=== PATIENT | female | born 1960 | race Caucasian/White ===

== ENCOUNTER → 2016-10-09 | Outpatient (CLI) | payer OTHER ==
[~2016-10-09] MED LIST: OMNIPAQUE 350 MG/ML, 100ML BOTTLE ONE
== END | disposition home or self-care (01) ==
LOC: RAD 13:03
PROVIDERS: ATTEND Obstetrics & Gynecology
DX: K76.89 Other specified diseases of liver (principal); R19.00 Intra-abdominal and pelvic swelling, mass and lump, unspecified site; R18.8 Other ascites; M51.36 Other intervertebral disc degeneration, lumbar region; M47.896 Other spondylosis, lumbar region
CPT/HCPCS: 74177; Q9967

== ENCOUNTER 2016-10-24 06:41 | Inpatient (IN) | payer OTHER ==
[2016-10-22 14:29] LABS: BLOOD UREA NITROGEN 11 mg/dL (7-18)
[2016-10-22 14:33] LABS: ASPARTATE AMINO TRANSFERASE 23 U/L (15-37)
[~2016-10-24] VITALS: Ht 172.7 cm; Wt 66.8 kg
[~2016-10-24 06:41] MED LIST changes: +None per pt; -OMNIPAQUE 350 MG/ML, 100ML BOTTLE ONE
[2016-10-24] MEDS ORDERED: ALBUMIN HUMAN 5% 500 ML ONE (07:17)
[2016-10-24] MEDS ORDERED: BUPIVACAINE/PF-EPI 0.25% 1:200K ONE (07:17)
[2016-10-24 08:22] VITALS: BP 114/73
[2016-10-24] MEDS ORDERED: FENTANYL PF 250 MCG/5ML ONE (08:44)
[2016-10-24] MEDS ORDERED: MIDAZOLAM 1 MG/ML, 2ML ONE (08:44)
[2016-10-24] MEDS ORDERED: KETAMINE 10 MG/ML, 20ML ONE ×2 (08:44→09:27)
[2016-10-24] MEDS ORDERED: HYDROmorphone 2 MG/ML, 1ML ONE ×2 (08:44→15:00)
[2016-10-24] MEDS ORDERED: HEPARIN 5,000 UNITS/ML, 1ML ONE (08:54)
[2016-10-24] MEDS ORDERED: ONDANSETRON 2MG/ML, 2ML ONE (09:27)
[2016-10-24] MEDS ORDERED: PROPOFOL 10 MG/ML, 20ML ONE (09:27)
[2016-10-24] MEDS ORDERED: PHENYLEPHRINE 10 MG/ML ONE (09:27)
[2016-10-24] MEDS ORDERED: ROCURONIUM 10 MG/ML ONE (09:27)
[2016-10-24] MEDS ORDERED: SUCCINYLCHOLINE 20 MG/ML, 10ML ONE (09:27)
[2016-10-24] MEDS ORDERED: NEOSTIGMINE 1 MG/ML, 10ML ONE (09:27)
[2016-10-24] MEDS ORDERED: CEFOTETAN 2 GM ONE (09:27)
[2016-10-24] MEDS ORDERED: GLYCOPYRROLATE 0.2MG/1ML ONE (09:27)
[2016-10-24] MEDS ORDERED: DEXAMETHASONE 4 MG/ML, 1ML ONE (09:27)
[2016-10-24] MEDS ORDERED: FENTANYL PF 100 MCG/2ML ONE (15:00)
[2016-10-24] MEDS ORDERED: OXYcodone 5 MG/5 ML ORAL.SOL UDC ONE (15:01)
[2016-10-24] MEDS: HYDROmorphone 1 MG/ML, 1ML IV PRN ×4 (15:15→15:40)
[2016-10-24] MEDS ORDERED: ONDANSETRON 2MG/ML, 2ML IVPush PRN (16:30)
[2016-10-24] MEDS ORDERED: FENTANYL PF 100 MCG/2ML IV PRN (16:30)
[2016-10-24] MEDS ORDERED: EPHEDRINE 50 MG/ML, 1ML IVPush PRN (16:30)
[2016-10-24] MEDS ORDERED: LABETALOL 5MG/ML, 20ML IV PRN (16:30)
[2016-10-24] MEDS ORDERED: MEPERIDINE/PF 25MG/0.5ML IVPush PRN (16:30)
[2016-10-24] MEDS ORDERED: morphine SULFATE 10 MG/ML, 1ML IV PRN (17:00)
[2016-10-24] MEDS ORDERED: ONDANSETRON 2MG/ML, 2ML IV PRN (17:00)
[2016-10-24] MEDS: POTASSIUM CHLORIDE 20 MEQ in D5%-0.45% NACL 1,000 ML IV SCH ×2 (17:55→22:03)
[2016-10-24] MEDS: ALBUMIN HUMAN 5% 500 ML IV SCH (17:55)
[2016-10-24 19:01] VITALS: BP 116/74
[2016-10-25 00:25] VITALS: BP 103/71
[2016-10-25] MEDS: POTASSIUM CHLORIDE 20 MEQ in D5%-0.45% NACL 1,000 ML IV SCH ×5 (01:13→22:58)
[2016-10-25] MEDS: morphine SULFATE 10 MG/ML, 1ML IV PRN ×4 (03:33→15:19)
[2016-10-25 04:00] VITALS: BP 101/65
[2016-10-25] MEDS: ALBUMIN HUMAN 5% 500 ML IV SCH ×2 (05:18→16:37)
[2016-10-25 08:43] VITALS: BP 97/64
[2016-10-25 11:42] LABS: BLOOD UREA NITROGEN 8 mg/dL (7-18)
[2016-10-25 11:47] LABS: DIFF TOTAL CELLS COUNTED 100 CELL DIFF
[2016-10-25 12:09] LABS: VERIFY COUNTS? YES
[2016-10-25 12:10] LABS: ANISOCYTOSIS 1+; HYPOCHROMIA 1+; OVALOCYTES 1+
[2016-10-25 12:11] LABS: LARGE PLATELETS 1+
[2016-10-25 12:59] VITALS: BP 100/62
[2016-10-25 19:48] VITALS: BP 109/63
[2016-10-26] MEDS: ALBUMIN HUMAN 5% 500 ML IV SCH (01:45)
[2016-10-26 02:31] VITALS: BP 103/67
[2016-10-26] MEDS: POTASSIUM CHLORIDE 20 MEQ in D5%-0.45% NACL 1,000 ML IV SCH (03:36)
[2016-10-26 08:45] VITALS: BP 126/77
[2016-10-26] MEDS ORDERED: DIPHENHYDRAMINE 50 MG/ML, 1ML ONE (10:06)
[2016-10-26] MEDS ORDERED: MAGNESIUM HYDROXIDE 8%, 30ML UDC ONE (10:35)
[2016-10-26 11:22] LABS: BLOOD UREA NITROGEN 3 mg/dL (7-18)
[2016-10-26] MEDS: D5%-0.45NACL+KCL 20MEQ 1,000 ML IV SCH ×2 (13:22→23:15)
[2016-10-26 14:09] VITALS: BP 122/74
[2016-10-26 19:45] VITALS: BP 126/75
[2016-10-27 01:41] VITALS: BP 135/87
[2016-10-27 06:20] LABS: BLOOD UREA NITROGEN 4 mg/dL (7-18)
[2016-10-27 07:15] VITALS: BP 131/83
[2016-10-27] MEDS: D5%-0.45NACL+KCL 20MEQ 1,000 ML IV SCH ×3 (08:58→20:27)
[2016-10-27 14:02] VITALS: BP 137/88
[2016-10-27 19:12] VITALS: BP 118/81
[2016-10-27] MEDS: OXYcodone/APAP 7.5/325MG TABLET PO PRN (20:07)
[2016-10-28] MEDS: OXYcodone/APAP 7.5/325MG TABLET PO PRN ×3 (01:58→16:59)
[2016-10-28 02:27] VITALS: BP 107/75
[2016-10-28 06:39] LABS: BLOOD UREA NITROGEN 6 mg/dL (7-18)
[2016-10-28 07:00] VITALS: BP 126/80
[2016-10-28 14:35] VITALS: BP 111/76
[2016-10-28] MEDS: ONDANSETRON 2MG/ML, 2ML IV PRN (17:00)
[2016-10-28 19:05] VITALS: BP 102/73
[2016-10-28] MEDS: D5%-0.45NACL+KCL 20MEQ 1,000 ML IV SCH (22:30)
[2016-10-29] MEDS: ONDANSETRON 2MG/ML, 2ML IV PRN ×3 (01:00→14:01)
[2016-10-29] MEDS: OXYcodone/APAP 7.5/325MG TABLET PO PRN ×4 (01:00→19:41)
[2016-10-29 01:44] VITALS: BP 108/73
[2016-10-29] MEDS: morphine SULFATE 10 MG/ML, 1ML IV PRN (04:37)
[2016-10-29 07:57] VITALS: BP 108/72
[2016-10-29 14:10] VITALS: BP 107/68
[2016-10-29] MEDS: D5%-0.45NACL+KCL 20MEQ 1,000 ML IV SCH (19:44)
[2016-10-29 20:10] VITALS: BP 100/67
[2016-10-30] MEDS: OXYcodone/APAP 7.5/325MG TABLET PO PRN ×4 (01:41→20:16)
[2016-10-30 02:37] VITALS: BP 109/73
[2016-10-30 10:59] VITALS: BP 111/69
[2016-10-30 14:30] VITALS: BP 121/77
[2016-10-30] MEDS: D5%-0.45NACL+KCL 20MEQ 1,000 ML IV SCH (16:08)
[2016-10-30 20:12] VITALS: BP 96/55
[2016-10-30 20:15] VITALS: BP 109/72
[2016-10-30 23:48] VITALS: BP 103/53
[2016-10-31] MEDS ORDERED: OXYC-223 PO (00:19)
[2016-10-31] MEDS ORDERED: ONDA4TAB10 PO (00:22)
[2016-10-31 02:24] VITALS: BP 108/69
[2016-10-31] MEDS: OXYcodone/APAP 7.5/325MG TABLET PO PRN ×4 (02:26→20:35)
[2016-10-31 06:01] LABS: BLOOD UREA NITROGEN 8 mg/dL (7-18)
[2016-10-31] MEDS: D5%-0.45NACL+KCL 20MEQ 1,000 ML IV SCH (08:19)
[2016-10-31 08:27] VITALS: BP 110/72
[2016-10-31 14:18] VITALS: BP 109/73
[2016-10-31 19:21] VITALS: BP 101/65
[2016-11-01] MEDS: OXYcodone/APAP 7.5/325MG TABLET PO PRN ×3 (02:31→19:14)
[2016-11-01 03:08] VITALS: BP 109/72
[2016-11-01] MEDS: D5%-0.45NACL+KCL 20MEQ 1,000 ML IV SCH (07:29)
[2016-11-01 08:21] VITALS: BP 105/70
[2016-11-01 13:44] VITALS: BP 110/72
[2016-11-01 19:23] VITALS: BP 106/70
[2016-11-02 02:35] VITALS: BP 105/69
[2016-11-02] MEDS: D5%-0.45NACL+KCL 20MEQ 1,000 ML IV SCH ×2 (02:44→21:20)
[2016-11-02] MEDS: OXYcodone/APAP 7.5/325MG TABLET PO PRN ×3 (02:44→19:35)
[2016-11-02 07:29] VITALS: BP 100/63
[2016-11-02 13:20] VITALS: BP 121/77
[2016-11-02 19:03] VITALS: BP 109/72
[2016-11-03] MEDS: OXYcodone/APAP 7.5/325MG TABLET PO PRN ×3 (03:50→21:24)
[2016-11-03 07:39] VITALS: BP 98/64
[2016-11-03 13:43] VITALS: BP 97/63
[2016-11-03] MEDS: D5%-0.45NACL+KCL 20MEQ 1,000 ML IV SCH (19:30)
[2016-11-03 20:50] VITALS: BP 117/77
[2016-11-04 04:22] VITALS: BP 102/67
[2016-11-04 08:47] VITALS: BP 111/69
[2016-11-04 14:25] VITALS: BP 110/74
[2016-11-04] MEDS: D5%-0.45NACL+KCL 20MEQ 1,000 ML IV SCH (15:30)
[2016-11-04] MEDS: OXYcodone/APAP 7.5/325MG TABLET PO PRN (16:25)
[2016-11-04 20:35] VITALS: BP 105/69
[2016-11-05] MEDS: OXYcodone/APAP 7.5/325MG TABLET PO PRN ×3 (00:43→20:30)
[2016-11-05 01:08] VITALS: BP 102/71
[2016-11-05 08:30] VITALS: BP 104/70
[2016-11-05] MEDS: D5%-0.45NACL+KCL 20MEQ 1,000 ML IV SCH (11:30)
[2016-11-05 14:30] VITALS: BP 110/74
[2016-11-05 18:33] VITALS: BP 100/66
[2016-11-06 01:48] VITALS: BP 102/69
[2016-11-06] MEDS: OXYcodone/APAP 7.5/325MG TABLET PO PRN (02:53)
[2016-11-06 05:44] LABS: ASPARTATE AMINO TRANSFERASE 21 U/L (15-37); BLOOD UREA NITROGEN 13 mg/dL (7-18)
[2016-11-06] MEDS: D5%-0.45NACL+KCL 20MEQ 1,000 ML IV SCH (07:24)
[2016-11-06 07:50] VITALS: BP 99/64
[2016-11-06 10:51] VITALS: BP 110/72
== END 2016-11-06 13:20 | disposition home or self-care (01) | DRG 657 ==
LOC: 4NOR 06:41 → UNDODISIN 16:56 → DCLOUNGE 11-06 12:32
PROVIDERS: ADMIT Specialist; ATTEND Specialist
PROC: 30233N1 Transfusion of Nonautologous Red Blood Cells into Peripheral Vein, Percutaneous Approach (ICD-10-PCS; 2016-10-24)
PROC: 07TD0ZZ Resection of Aortic Lymphatic, Open Approach (ICD-10-PCS; principal; 2016-10-26)
PROC: 0DTJ0ZZ Resection of Appendix, Open Approach (ICD-10-PCS; 2016-10-26)
PROC: 0UT20ZZ Resection of Bilateral Ovaries, Open Approach (ICD-10-PCS; 2016-10-26)
PROC: 0DTS0ZZ (ICD-10-PCS; 2016-10-26)
PROC: 0UT70ZZ Resection of Bilateral Fallopian Tubes, Open Approach (ICD-10-PCS; 2016-10-26)
PROC: 07TC0ZZ Resection of Pelvis Lymphatic, Open Approach (ICD-10-PCS; 2016-10-26)
PROC: 0DTN0ZZ Resection of Sigmoid Colon, Open Approach (ICD-10-PCS; 2016-10-26)
PROC: 07TB0ZZ Resection of Mesenteric Lymphatic, Open Approach (ICD-10-PCS; 2016-10-26)
PROC: 0DBW0ZZ Excision of Peritoneum, Open Approach (ICD-10-PCS; 2016-10-26)
PROC: 0UT90ZZ Resection of Uterus, Open Approach (ICD-10-PCS; 2016-10-26)
PROC: 0UTC0ZZ Resection of Cervix, Open Approach (ICD-10-PCS; 2016-10-26)
PROC: 06B Lower Veins, Excision (ICD-10-PCS; 2016-10-26)
PROC: 0UBG0ZZ Excision of Vagina, Open Approach (ICD-10-PCS; 2016-10-26)
PROC: 0WHG03Z Insertion of Infusion Device into Peritoneal Cavity, Open Approach (ICD-10-PCS; 2016-10-26)
PROC: 0JH Subcutaneous Tissue and Fascia, Insertion (ICD-10-PCS; 2016-10-26)
DX: C79.11 Secondary malignant neoplasm of bladder (principal); C56.1 Malignant neoplasm of right ovary; C78.6 Secondary malignant neoplasm of retroperitoneum and peritoneum; C18.7 Malignant neoplasm of sigmoid colon; C56.2 Malignant neoplasm of left ovary; R18.0 Malignant ascites; I89.8 Other specified noninfective disorders of lymphatic vessels and lymph nodes
CPT/HCPCS: 36415; 71020; 74000; 80048; 80053; 82330; 82803; 82947; 84132; 84295; 85014; 85025; 85610; 85730; 86850; 86900; 86923; 88304; 88305; 88307; 88341; 88342; 93005; C1729; J1100; J1170; J1644; J2250; J2270; J2405; J2704; J2710; J3010; J3480; J3490; P9045; C1751; C1765; G0461; J0330; J2370; P9016; S0074

== ENCOUNTER 2016-12-10 08:57 | Inpatient (IN) | payer OTHER ==
[~2016-12-10] VITALS: Ht 172.7 cm; Wt 62.8 kg
[~2016-12-10 08:57] MED LIST changes: +ONDA4TAB10 PO; +OXYC-223 PO
[2016-12-10 09:14] VITALS: BP 125/77
[2016-12-10] MEDS ORDERED: IBUPROFEN 200 MG TABLET PO PRN (12:00)
[2016-12-10] MEDS ORDERED: ONDANSETRON 16 MG, DEXAMETHASONE 20 MG in SODIUM CHLORIDE 0.9% 50 ML IVPB ONE (12:00)
[2016-12-10] MEDS ORDERED: DIPHENHYDRAMINE 50 MG/ML, 1ML IVPush ONE (12:00)
[2016-12-10] MEDS ORDERED: FAMOTIDINE 20 MG/2 ML IVPush ONE (12:00)
[2016-12-10] MEDS ORDERED: OXYcodone/APAP 5/325MG TABLET PO PRN (12:00)
[2016-12-10] MEDS: SODIUM CHLORIDE 0.9% 1,000 ML IV SCH ×2 (12:16→18:15)
[2016-12-10] MEDS ORDERED: FILTER 0.22 MICRON IV ONE (12:30)
[2016-12-10] MEDS ORDERED: SODIUM CHLORIDE 0.9% IV ONE (12:30)
[2016-12-10] MEDS ORDERED: PACLITAXEL IV ONE (12:30)
[2016-12-10 13:38] VITALS: BP 107/69
[2016-12-10 20:09] VITALS: BP 123/82
[2016-12-11] MEDS: SODIUM CHLORIDE 0.9% 1,000 ML IV SCH ×3 (02:31→22:33)
[2016-12-11 02:58] VITALS: BP 110/60
[2016-12-11 07:24] VITALS: BP 111/69
[2016-12-11] MEDS ORDERED: SODIUM CHLORIDE 0.9% 2,000 ML IV ONE (09:30)
[2016-12-11 13:57] VITALS: BP 125/79
[2016-12-11] MEDS ORDERED: CISPLATIN IP ONE ×2 (14:00→21:00)
[2016-12-11] MEDS ORDERED: SODIUM CHLORIDE 0.9% IP ONE ×2 (14:00→21:00)
[2016-12-11] MEDS ORDERED: MAGNESIUM HYDROXIDE 8%, 30ML UDC PO PRN (18:30)
[2016-12-11 19:28] VITALS: BP 106/69
[2016-12-11] MEDS ORDERED: LIDOCAINE/PRILOCAINE CRM W/TEG 5GM TP ONE (20:00)
[2016-12-12 01:40] VITALS: BP 110/68
[2016-12-12] MEDS ORDERED: ONDANSETRON 2MG/ML, 2ML IVPush PRN (04:30)
[2016-12-12] MEDS ORDERED: ONDANSETRON 2MG/ML, 2ML ONE (04:37)
[2016-12-12] MEDS: SODIUM CHLORIDE 0.9% 1,000 ML IV SCH (06:09)
[2016-12-12 07:45] VITALS: BP 101/65
[2016-12-12] MEDS ORDERED: DEXAMETHASONE 4 MG/ML, 1ML PO PRN (08:30)
[2016-12-12] MEDS ORDERED: SODIUM CHLORIDE 0.9% IVPB ONE ×4 (11:00→22:30)
[2016-12-12] MEDS ORDERED: MANNITOL IVPB ONE ×4 (11:00→22:30)
[2016-12-12] MEDS: SODIUM CHLORIDE 0.9% IVPB ONE ×2 (11:41→12:00)
[2016-12-12] MEDS: MANNITOL IVPB ONE ×2 (11:41→12:00)
[2016-12-12] MEDS: ONDANSETRON 2MG/ML, 2ML IVPush PRN ×2 (11:46→18:26)
[2016-12-12] MEDS ORDERED: MANNITOL 0.25 GM/ML, 50ML IV ONE (12:00)
[2016-12-12 12:49] VITALS: BP 116/76
[2016-12-12] MEDS: DEXAMETHASONE 4 MG/ML, 1ML IVPush PRN ×2 (14:57→21:15)
[2016-12-12] MEDS ORDERED: DEXAMETHASONE 4 MG/ML, 1ML IVPush SCH (15:00)
[2016-12-12 19:25] VITALS: BP 129/82
[2016-12-12] MEDS: OXYcodone/APAP 5/325MG TABLET PO PRN (19:30)
[2016-12-13 01:01] VITALS: BP 128/79
[2016-12-13] MEDS: ONDANSETRON 2MG/ML, 2ML IVPush PRN ×3 (01:01→12:39)
[2016-12-13 07:01] VITALS: BP 120/78
[2016-12-13] MEDS: DEXAMETHASONE 4 MG/ML, 1ML IVPush PRN (09:28)
[2016-12-13] MEDS: OXYcodone/APAP 5/325MG TABLET PO PRN (09:28)
[2016-12-13] MEDS ORDERED: DEXA4TAB PO (11:58)
== END 2016-12-13 13:15 | disposition home or self-care (01) | DRG 847 ==
LOC: INTOOBSV 08:57 → 3NW 08:57 → OBSVTOIN 09:00 → UNDODISOB 12-13 13:15
PROVIDERS: ADMIT Specialist; ATTEND Specialist
DX: Z51.11 Encounter for antineoplastic chemotherapy (principal); C56.9 Malignant neoplasm of unspecified ovary; R11.2 Nausea with vomiting, unspecified
CPT/HCPCS: G0378; J1100; J1200; J2150; J2405; J7030; J7040; J9060; J9267; S0028

== ENCOUNTER 2017-01-11 06:55 | Day surgery (SDC) | payer OTHER ==
[2017-01-07 07:54] VITALS: BP 105/74
[~2017-01-11] VITALS: Ht 172.7 cm; Wt 60.6 kg
[~2017-01-11 06:55] MED LIST changes: +DEXA4TAB PO; -OXYC-223 PO; +OXYC-306 PO
[2017-01-11] MEDS ORDERED: LACTATED RINGERS 1,000 ML IV SCH (07:33)
[2017-01-11] MEDS ORDERED: ZOFRAN PO (07:37)
[2017-01-11] MEDS ORDERED: PENICILLIN PO (07:37)
[2017-01-11] MEDS ORDERED: FAMO-79 PO (07:37)
[2017-01-11 07:39] VITALS: BP 105/74
[2017-01-11] MEDS ORDERED: LIDOCAINE 1%, 2ML SQ PRN (08:00)
[2017-01-11] MEDS ORDERED: FENTANYL PF 100 MCG/2ML ONE (08:41)
[2017-01-11] MEDS ORDERED: EPINEPHRINE 1 MG/ML, 1ML ONE (08:50)
[2017-01-11] MEDS ORDERED: HEPARIN 5,000 UNITS/ML, 1ML ONE (08:50)
[2017-01-11] MEDS ORDERED: BUPIVACAINE/PF 0.25% ONE (08:51)
[2017-01-11] MEDS ORDERED: MIDAZOLAM 1 MG/ML, 2ML ONE (10:11)
[2017-01-11] MEDS ORDERED: ROCURONIUM 10 MG/ML ONE (10:16)
[2017-01-11] MEDS ORDERED: NEOSTIGMINE 1 MG/ML, 10ML ONE (10:16)
[2017-01-11] MEDS ORDERED: PROPOFOL 10 MG/ML, 20ML ONE (10:16)
[2017-01-11] MEDS ORDERED: CEFAZOLIN 1,000 MG ONE (10:16)
[2017-01-11] MEDS ORDERED: DEXAMETHASONE 4 MG/ML, 1ML ONE (10:16)
[2017-01-11] MEDS ORDERED: SUCCINYLCHOLINE 20 MG/ML, 10ML ONE (10:16)
[2017-01-11] MEDS ORDERED: ONDANSETRON 2MG/ML, 2ML ONE (10:16)
[2017-01-11] MEDS ORDERED: GLYCOPYRROLATE 0.2MG/1ML ONE (10:16)
[2017-01-11] MEDS ORDERED: HYDROmorphone 1 MG/ML, 1ML ONE (11:43)
[2017-01-11] MEDS ORDERED: OXYcodone 5 MG/5 ML ORAL.SOL UDC ONE (11:43)
[2017-01-11] MEDS ORDERED: ACETAMINOPHEN 650 MG/20.3 ML UDC ONE (11:44)
[2017-01-11] MEDS ORDERED: PROMETHAZINE 25 MG/ML, 1ML IV PRN (12:00)
[2017-01-11] MEDS ORDERED: HYDROmorphone 1 MG/ML, 1ML IV PRN (12:00)
[2017-01-11] MEDS ORDERED: OXYcodone 5 MG/5 ML ORAL.SOL UDC PO PRN (12:00)
[2017-01-11] MEDS ORDERED: ACETAMINOPHEN 325 MG TABLET PO PRN (12:00)
[2017-01-11] MEDS ORDERED: FENTANYL PF 100 MCG/2ML IV PRN (12:00)
== END 2017-01-11 14:10 ==
LOC: OUT 06:55
PROVIDERS: ATTEND Specialist
DX: Z45.2 Encounter for adjustment and management of vascular access device (principal); C56.1 Malignant neoplasm of right ovary; C56.2 Malignant neoplasm of left ovary; Z98.890 Other specified postprocedural states; Z90.710 Acquired absence of both cervix and uterus; Z80.9 Family history of malignant neoplasm, unspecified; Z82.49 Family history of ischemic heart disease and other diseases of the circulatory system
CPT/HCPCS: 36415; 36561; 49422; 71010; 77001; 86850; 86900; C1788; J0171; J0330; J0690; J1100; J1170; J1644; J2250; J2405; J2704; J2710; J3010; J3490; J7120

== ENCOUNTER 2019-03-08 09:52 | Outpatient (CLI) | payer OTHER ==
[~2019-03-08] VITALS: Ht 172.7 cm; Wt 67.0 kg
[~2019-03-08 09:52] MED LIST changes: +ASCO-254 PO; +CHOL500045 PO; +FAMO-79 PO; +FERR324T5 PO; +PENICILLIN PO; +VANC125C3 PO; +ZOFRAN PO
[2019-03-08 10:00] VITALS: BP 135/75
[2019-03-08] MEDS ORDERED: SODIUM CHLORIDE 0.9% IV ONE (11:00)
[2019-03-08] MEDS ORDERED: BEVACIZUMAB IV ONE (11:00)
== END 2019-03-08 23:59 | disposition home or self-care (01) ==
LOC: INFUSION 09:52
PROVIDERS: ATTEND Specialist
DX: Z51.11 Encounter for antineoplastic chemotherapy (principal); C56.9 Malignant neoplasm of unspecified ovary; I10 Essential (primary) hypertension; Z85.51 Personal history of malignant neoplasm of bladder; Z90.710 Acquired absence of both cervix and uterus; Z90.49 Acquired absence of other specified parts of digestive tract; Z90.722 Acquired absence of ovaries, bilateral; Z85.038 Personal history of other malignant neoplasm of large intestine
CPT/HCPCS: 96413; J9035

== ENCOUNTER → 2019-03-30 | Outpatient (CLI) | payer MEDICARE ==
[~2019-03-30] VITALS: Ht 172.7 cm; Wt 67.0 kg
[~2019-03-30] MED LIST changes: +BEVACIZUMAB IV ONE; +SODIUM CHLORIDE 0.9% IV ONE
[2019-03-30 09:20] VITALS: BP 118/77
== END | disposition home or self-care (01) ==
LOC: INFUSION 07:59
PROVIDERS: ATTEND Specialist
DX: Z51.11 Encounter for antineoplastic chemotherapy (principal); C56.9 Malignant neoplasm of unspecified ovary; I10 Essential (primary) hypertension; Z90.710 Acquired absence of both cervix and uterus; Z90.49 Acquired absence of other specified parts of digestive tract; Z90.722 Acquired absence of ovaries, bilateral; Z85.51 Personal history of malignant neoplasm of bladder; Z85.038 Personal history of other malignant neoplasm of large intestine
CPT/HCPCS: 96413; J9035

== ENCOUNTER → 2019-04-19 | Outpatient (CLI) | payer MEDICARE ==
[~2019-04-19] MED LIST changes: -BEVACIZUMAB IV ONE; -SODIUM CHLORIDE 0.9% IV ONE
== END | disposition home or self-care (01) ==
LOC: RAD 12:23
PROVIDERS: ATTEND Registered Nurse Maternal Newborn
DX: C56.2 Malignant neoplasm of left ovary (principal)
CPT/HCPCS: 71046

== ENCOUNTER → 2019-04-19 | Outpatient (CLI) | payer MEDICARE ==
[~2019-04-19] VITALS: Ht 172.7 cm; Wt 67.4 kg
[~2019-04-19] MED LIST changes: +BEVACIZUMAB IV ONE; +SODIUM CHLORIDE 0.9% IV ONE
[2019-04-19 10:00] VITALS: BP 134/90
== END | disposition home or self-care (01) ==
LOC: INFUSION 13:16
PROVIDERS: ATTEND Specialist
DX: Z51.11 Encounter for antineoplastic chemotherapy (principal); C56.9 Malignant neoplasm of unspecified ovary; I10 Essential (primary) hypertension; Z90.710 Acquired absence of both cervix and uterus; Z90.49 Acquired absence of other specified parts of digestive tract; Z90.722 Acquired absence of ovaries, bilateral; Z85.51 Personal history of malignant neoplasm of bladder; Z85.038 Personal history of other malignant neoplasm of large intestine
CPT/HCPCS: 96413; J9035

== ENCOUNTER → 2019-05-11 | Outpatient (CLI) | payer MEDICARE ==
[~2019-05-11] VITALS: Ht 172.7 cm; Wt 68.1 kg
[2019-05-11 09:00] VITALS: BP 138/85
== END | disposition home or self-care (01) ==
LOC: INFUSION 07:07
PROVIDERS: ATTEND Specialist
DX: Z51.11 Encounter for antineoplastic chemotherapy (principal); C56.2 Malignant neoplasm of left ovary; I10 Essential (primary) hypertension; Z85.038 Personal history of other malignant neoplasm of large intestine; Z85.51 Personal history of malignant neoplasm of bladder; Z90.710 Acquired absence of both cervix and uterus; Z90.49 Acquired absence of other specified parts of digestive tract; Z90.722 Acquired absence of ovaries, bilateral
CPT/HCPCS: 96413; J9035

== ENCOUNTER 2019-06-01 09:10 | Outpatient (CLI) | payer MEDICARE ==
[~2019-06-01] VITALS: Ht 172.7 cm; Wt 67.9 kg
[2019-06-01 09:09] VITALS: BP 143/85
[~2019-06-01 09:10] MED LIST changes: -BEVACIZUMAB IV ONE; -SODIUM CHLORIDE 0.9% IV ONE
[2019-06-01 10:56] LABS: ANION GAP 8 mmol/L (5-15); CALCIUM 9.3 mg/dL (8.5-10.1); CHLORIDE 105 mmol/L (98-107); CREATININE 1.01 mg/dL (0.55-1.02)
[2019-06-01] MEDS ORDERED: ONDANSETRON 4 MG TABLET PO PRN (11:30)
[2019-06-01] MEDS ORDERED: PROCHLORPERAZINE 10MG TABLET PO PRN (11:30)
[2019-06-01] MEDS ORDERED: SODIUM CHLORIDE 0.9% IV ONE (11:30)
[2019-06-01] MEDS ORDERED: BEVACIZUMAB IV ONE (11:30)
== END 2019-06-01 23:59 | disposition home or self-care (01) ==
LOC: INFUSION 09:10
PROVIDERS: ATTEND Specialist
DX: Z51.11 Encounter for antineoplastic chemotherapy (principal); C56.1 Malignant neoplasm of right ovary; C56.2 Malignant neoplasm of left ovary; C76.2 Malignant neoplasm of abdomen; C48.2 Malignant neoplasm of peritoneum, unspecified; R97.1 Elevated cancer antigen 125 [CA 125]; I10 Essential (primary) hypertension; Z90.710 Acquired absence of both cervix and uterus; Z90.49 Acquired absence of other specified parts of digestive tract; Z90.722 Acquired absence of ovaries, bilateral; Z85.51 Personal history of malignant neoplasm of bladder; Z85.038 Personal history of other malignant neoplasm of large intestine
CPT/HCPCS: 36415; 36591; 80048; 96413; J9035

== ENCOUNTER → 2019-06-23 | Outpatient (CLI) | payer MEDICARE ==
[~2019-06-23] MED LIST changes: +MULT-516 PO
== END | disposition home or self-care (01) ==
LOC: RAD 12:55
PROVIDERS: ATTEND Physician Assistant
DX: C56.2 Malignant neoplasm of left ovary (principal)
CPT/HCPCS: 78472; A9560

== ENCOUNTER 2019-06-27 06:34 | Day surgery (SDC) | payer MEDICARE, OTHER ==
[2019-06-26 09:11] LABS: INTERNATIONAL NORMALIZED RATIO 0.93 (0.93-1.1); PROTHROMBIN TIME 9.8 Seconds (9.6-11.5)
[~2019-06-27] VITALS: Ht 172.7 cm; Wt 67.5 kg
[2019-06-27] MEDS ORDERED: CEFOTETAN PMX 2GM/50ML 50 ML IV STA (06:56)
[2019-06-27] MEDS ORDERED: LACTATED RINGERS 1,000 ML IV SCH (06:56)
[2019-06-27 07:09] VITALS: BP 140/103
[2019-06-27] MEDS ORDERED: MIDAZOLAM 1 MG/ML, 2ML ONE (07:51)
[2019-06-27] MEDS ORDERED: FENTANYL PF 250 MCG/5ML ONE (07:51)
[2019-06-27] MEDS ORDERED: LABETALOL 5MG/ML, 20ML IV PRN (08:00)
[2019-06-27] MEDS ORDERED: ONDANSETRON 2MG/ML, 2ML IV PRN (08:00)
[2019-06-27] MEDS ORDERED: HYDROmorphone 2 MG/ML, 1ML IVPush PRN (08:00)
[2019-06-27] MEDS ORDERED: PROMETHAZINE 25 MG/ML, 1ML IV PRN (08:00)
[2019-06-27] MEDS ORDERED: ACETAMINOPHEN 325 MG TABLET PO PRN (08:00)
[2019-06-27] MEDS ORDERED: MEPERIDINE/PF 25MG/ML,1ML IVPush PRN (08:00)
[2019-06-27] MEDS ORDERED: FENTANYL PF 100 MCG/2ML IV PRN (08:00)
[2019-06-27] MEDS ORDERED: hydrALAzine 20 MG/ML, 1ML IV PRN (08:00)
[2019-06-27] MEDS ORDERED: BUPIVACAINE/PF 0.25% ONE (08:23)
[2019-06-27] MEDS ORDERED: HEPARIN 1,000 UNITS/ML, 10ML ONE (08:23)
[2019-06-27] MEDS ORDERED: EPINEPHRINE 1 MG/ML, 1ML ONE (08:23)
[2019-06-27] MEDS ORDERED: DEXAMETHASONE 4 MG/ML, 1ML ONE ×2 (08:36)
[2019-06-27] MEDS ORDERED: ONDANSETRON 2MG/ML, 2ML ONE ×2 (08:36→08:51)
[2019-06-27] MEDS ORDERED: PROPOFOL 10 MG/ML, 20ML ONE (08:36)
[2019-06-27] MEDS ORDERED: KETOROLAC 30 MG/1 ML ONE (09:03)
[2019-06-27] MEDS ORDERED: OXYcodone 5 MG/5 ML ORAL.SOL UDC ONE (10:37)
[2019-06-27] MEDS: OXYcodone 5 MG/5 ML ORAL.SOL UDC PO PRN ×2 (10:38→10:44)
[2019-06-27] MEDS ORDERED: FENTANYL PF 100 MCG/2ML ONE (10:41)
[2019-06-27] MEDS ORDERED: OMNIPAQUE 350 MG/ML, 50 ML BOTTLE ONE (13:21)
== END 2019-06-27 12:15 | disposition home or self-care (01) ==
LOC: OUT 06:34
PROVIDERS: ATTEND Specialist
DX: C56.9 Malignant neoplasm of unspecified ovary (principal); C78.6 Secondary malignant neoplasm of retroperitoneum and peritoneum; Z79.01 Long term (current) use of anticoagulants; Z79.899 Other long term (current) drug therapy; Z90.710 Acquired absence of both cervix and uterus; Z90.722 Acquired absence of ovaries, bilateral; Z90.79 Acquired absence of other genital organ(s)
CPT/HCPCS: 36415; 36561; 76937; 77001; 85610; 85730; C1788; J0171; J1100; J1644; J1885; J2250; J2405; J2704; J3010; J3490; J7120; Q9967; 71045

== ENCOUNTER → 2019-07-05 | Outpatient (CLI) | payer MEDICARE ==
[~2019-07-05] VITALS: Ht 172.7 cm; Wt 67.5 kg
[~2019-07-05] MED LIST changes: +DEXTROSE 5% IV ONE; +DIPHENHYDRAMINE 50 MG/ML, 1ML IVPush ONE; +FAMOTIDINE 20 MG/2 ML IVPush ONE; +ONDANSETRON 16 MG, DEXAMETHASONE 12 MG in SODIUM CHLORIDE 0.9% 50 ML IVPB ONE; +[UNRECOGNIZED DRUG - OTHER] IV ONE
[2019-07-05 10:10] VITALS: BP 147/88
[2019-07-05 10:33] LABS: BASOPHILS # (AUTO) 0.03 x10^3/uL (0-0.1); BASOPHILS % (AUTO) 1 % (0-1); EOSINOPHILS # (AUTO) 0.29 x10^3/uL (0-0.4); EOSINOPHILS % (AUTO) 4 % (1-7); LYMPHOCYTES # (AUTO) 1.38 x10^3/uL (1-3.4); LYMPHOCYTES % (AUTO) 20 % (22-44); MD NO; MEAN CORPUSCULAR HEMOGLOBIN 26.1 pg (27.0-34.8); MEAN CORPUSCULAR VOLUME 81.6 fL (80-100); MEAN PLATELET VOLUME 8.5 fL (7.4-10.4); MONOCYTES # (AUTO) 0.64 x10^3/uL (0.2-0.8); MONOCYTES % (AUTO) 9 % (2-9); NEUTROPHILS # (AUTO) 4.61 x10^3/uL (1.8-6.8); NEUTROPHILS % (AUTO) 66 % (42-75); PLATELET COUNT 313 x10^3/uL (130-400); RED BLOOD COUNT 4.48 x10^6/uL (3.82-5.3); RED CELL DISTRIBUTION WIDTH 13.3 % (9.6-15.2)
[2019-07-05 10:43] LABS: ALANINE AMINOTRANSFERASE 30 U/L (12-78); ALBUMIN 3.1 g/dL (3.4-5.0); ANION GAP 5 mmol/L (5-15); CHLORIDE 106 mmol/L (98-107); CREATININE 0.94 mg/dL (0.55-1.02)
[2019-07-05 10:45] LABS: ALKALINE PHOSPHATASE 72 U/L (45-117); BILIRUBIN,TOTAL 0.3 mg/dL (0.2-1.0); TOTAL PROTEIN 7.1 g/dL (6.4-8.2)
== END | disposition home or self-care (01) ==
LOC: INFUSION 10:03
PROVIDERS: ATTEND Specialist
DX: Z51.11 Encounter for antineoplastic chemotherapy (principal); C56.1 Malignant neoplasm of right ovary; C56.2 Malignant neoplasm of left ovary; C78.6 Secondary malignant neoplasm of retroperitoneum and peritoneum; I10 Essential (primary) hypertension; Z79.01 Long term (current) use of anticoagulants; Z90.710 Acquired absence of both cervix and uterus; Z90.49 Acquired absence of other specified parts of digestive tract; Z90.722 Acquired absence of ovaries, bilateral; Z85.038 Personal history of other malignant neoplasm of large intestine
CPT/HCPCS: 36415; 36591; 80053; 85025; 96367; 96375; 96413; J1100; J1200; J2405; J3490; J7060; Q2050

== ENCOUNTER 2019-07-31 15:22 | Emergency (ER) | payer MEDICARE, OTHER ==
[~2019-07-31] VITALS: Ht 172.7 cm; Wt 67.8 kg
[~2019-07-31 15:22] MED LIST changes: -DEXTROSE 5% IV ONE; -DIPHENHYDRAMINE 50 MG/ML, 1ML IVPush ONE; -FAMOTIDINE 20 MG/2 ML IVPush ONE; -ONDANSETRON 16 MG, DEXAMETHASONE 12 MG in SODIUM CHLORIDE 0.9% 50 ML IVPB ONE; -[UNRECOGNIZED DRUG - OTHER] IV ONE
[2019-07-31] MEDS ORDERED: SODIUM CHLORIDE FLUSH 10ML SYR IVF ONE (16:00)
--- NOTE | 2019-07-31 16:06 | NUR ---
pt to room, pt to xr. as
[2019-07-31 16:19] LABS: RAPID INFLUENZA A Negative (Negative); RAPID INFLUENZA B Negative (Negative)
[2019-07-31 16:36] LABS: BASOPHILS # (AUTO) 0.02 x10^3/uL (0-0.1); BASOPHILS % (AUTO) 1 % (0-1); EOSINOPHILS # (AUTO) 0.04 x10^3/uL (0-0.4); EOSINOPHILS % (AUTO) 1 % (1-7); LYMPHOCYTES # (AUTO) 0.91 x10^3/uL (1-3.4); LYMPHOCYTES % (AUTO) 31 % (22-44); MD NO; MEAN CORPUSCULAR HEMOGLOBIN 25.7 pg (27.0-34.8); MEAN CORPUSCULAR HGB CONC 32.2 g/dL (32.4-35.8); MEAN CORPUSCULAR VOLUME 79.8 fL (80-100); MEAN PLATELET VOLUME 8.6 fL (7.4-10.4); MONOCYTES # (AUTO) 0.49 x10^3/uL (0.2-0.8); MONOCYTES % (AUTO) 17 % (2-9); NEUTROPHILS # (AUTO) 1.51 x10^3/uL (1.8-6.8); NEUTROPHILS % (AUTO) 51 % (42-75); PLATELET COUNT 355 x10^3/uL (130-400); RED BLOOD COUNT 4.29 x10^6/uL (3.82-5.3); RED CELL DISTRIBUTION WIDTH 14.9 % (9.6-15.2)
[2019-07-31 16:39] LABS: ALBUMIN 3.2 g/dL (3.4-5.0); ANION GAP 9 mmol/L (5-15); CALCIUM 9.3 mg/dL (8.5-10.1); CHLORIDE 108 mmol/L (98-107)
[2019-07-31 16:43] LABS: ALANINE AMINOTRANSFERASE 30 U/L (12-78); ALKALINE PHOSPHATASE 71 U/L (45-117); BILIRUBIN,TOTAL 0.4 mg/dL (0.2-1.0); CREATININE 0.99 mg/dL (0.55-1.02); TOTAL PROTEIN 7.7 g/dL (6.4-8.2)
--- NOTE | 2019-07-31 16:48 | NUR ---
LUIS FERNANDOM IN ROOM FOR EVAL. LABS STILL PENDING. VSS. NAD. CALL PAOLA.
[2019-07-31 17:31] VITALS: BP 122/70
== END 2019-07-31 17:52 ==
LOC: ED 17:30
DX: C56.9 Malignant neoplasm of unspecified ovary (principal); R05 Cough; R06.02 Shortness of breath
CPT/HCPCS: 36415; 71046; 80053; 85025; 87400; 99284

== ENCOUNTER 2019-08-01 15:15 | Emergency (ER) | payer MEDICARE ==
[~2019-08-01] VITALS: Ht 172.7 cm; Wt 67.0 kg
[2019-08-01] MEDS ORDERED: SODIUM CHLORIDE FLUSH 10ML SYR IVF ONE (16:00)
--- NOTE | 2019-08-01 16:03 | NUR ---
[employer]: PT WHEELED BACK FROM LOBBY TO ROOM AT THIS TIME.
--- NOTE | 2019-08-01 16:10 | NUR ---
FIRST CONTACT WITH PT. PT L POSTERIOR NECK/SHOULDER PAIN SINCE DURING THE NIGHT LAST NIGHT. ON CHEMO FOR OVARIAN CA. PT'S AOX4. RESPS EVEN AND UNLABORED. BP/SPO2 MONITORS IN PLACE. CALL LIGHT WITHIN REACH.
[2019-08-01] MEDS ORDERED: METHOCARBAMOL 500 MG TABLET PO ONE (17:30)
[2019-08-01] MEDS ORDERED: KETOROLAC 30 MG/1 ML IVPush ONE (17:30)
--- NOTE | 2019-08-01 17:32 | NUR ---
PT AMB TO BR AND BACK TO ROOM WITH STEADY GAIT.
[2019-08-01] MEDS ORDERED: METHOCARBAMOL 500 MG TABLET ONE (17:38)
[2019-08-01] MEDS ORDERED: KETOROLAC 30 MG/1 ML ONE (17:38)
[2019-08-01] MEDS ORDERED: MORPHINE SULFATE 4 MG/ML, 1ML IVPush ONE (18:00)
[2019-08-01 18:01] VITALS: BP 169/98
[2019-08-01] MEDS ORDERED: LORazepam 2 MG/ML, 1ML ONE (18:10)
--- NOTE | 2019-08-01 18:13 | NUR ---
PT MEDICATED PER EMAR. PT TOLERATED WELL.
[2019-08-01] MEDS ORDERED: LORazepam 2 MG/ML, 1ML IVPush ONE (18:30)
--- NOTE | 2019-08-01 18:38 | NUR ---
pt in mri at this time.
[2019-08-01] MEDS ORDERED: GADOTERATE 7.5 MMOL/15 ML SYR ONE (18:44)
--- NOTE | 2019-08-01 19:24 | NUR ---
report given to jennifer pierre.
[2019-08-01] MEDS ORDERED: methylPREDNISolone SOD SUCC 125 MG/2 ML IVPush SCH (19:30)
[2019-08-01] MEDS ORDERED: methylPREDNISolone SOD SUCC 125 MG/2 ML ONE (19:43)
[2019-08-01 19:51] LABS: TROPONIN I < 0.015 ng/mL (0.000-0.045)
[2019-08-01] MEDS ORDERED: MORPHINE SULFATE 4 MG/ML, 1ML ONE (20:12)
== END 2019-08-01 21:28 | disposition home or self-care (01) ==
LOC: ED 20:43
DX: M50.13 Cervical disc disorder with radiculopathy, cervicothoracic region (principal); Z85.43 Personal history of malignant neoplasm of ovary
CPT/HCPCS: 36415; 72125; 72156; 73030; 84484; 93005; 96374; 96375; 99285; A9575; J1885; J2060; J2270; J2930

== ENCOUNTER 2019-08-29 04:06 | Emergency (ER) | payer MEDICARE ==
[~2019-08-29] VITALS: Ht 174 cm; Wt 67.0 kg
[2019-08-29] MEDS ORDERED: HYDROmorphone 1 MG/ML, 1ML INJ IM ONE (05:00)
[2019-08-29] MEDS ORDERED: ONDANSETRON ODT 4 MG PO ONE (05:00)
[2019-08-29] MEDS ORDERED: ONDANSETRON ODT 4 MG ONE (05:05)
[2019-08-29] MEDS ORDERED: HYDROmorphone 1 MG/ML, 1ML INJ ONE (05:05)
--- NOTE | 2019-08-29 05:13 | NUR ---
Patient medicated per mar.
[2019-08-29 05:49] VITALS: BP 149/92
--- NOTE | 2019-08-29 05:53 | NUR ---
Patient states medication helped her pain.
== END 2019-08-29 06:44 | disposition home or self-care (01) ==
LOC: ED 04:25
DX: S16.1XXA Strain of muscle, fascia and tendon at neck level, initial encounter (principal); C56.9 Malignant neoplasm of unspecified ovary; X58.XXXA Exposure to other specified factors, initial encounter; Y93.89 Activity, other specified; Y92.89 Other specified places as the place of occurrence of the external cause; Y99.8 Other external cause status
CPT/HCPCS: 96372; 99283; J1170; Q0162